=== PATIENT | female | born 1985 | race Hispanic/Latino ===

== ENCOUNTER 2017-09-15 09:03 | Emergency (ER) | payer SELFPAY ==
[2017-09-15] MEDS ORDERED: Lidocaine 1% PF 5 ML VIAL ONE (09:31)
== END 2017-09-15 09:55 | disposition home or self-care (01) ==
LOC: ERS 09:03
DX: L02.413 Cutaneous abscess of right upper limb (principal); Z76.0 Encounter for issue of repeat prescription; F41.9 Anxiety disorder, unspecified; F32.9 Major depressive disorder, single episode, unspecified; F17.210 Nicotine dependence, cigarettes, uncomplicated
CPT/HCPCS: 10061; J2001

== ENCOUNTER 2024-07-04 05:14 | Inpatient (IN) | payer SELFPAY ==
[2024-07-04] MEDS ORDERED: Acetaminophen 650 MG Suppository PR PRN (05:58)
[2024-07-04] MEDS ORDERED: Ondansetron PF 4 MG/2 ML Vial IVP PRN (05:58)
[2024-07-04] MEDS ORDERED: Ondansetron ODT 4 MG TAB PO PRN (05:58)
[2024-07-04] MEDS: Lorazepam 1 MG TAB PO SCH (06:20)
[2024-07-04 07:15] LABS: #Basophils 0.04 10x3/uL (0.0-0.2); %Basophils 0.5 % (0.0-1.0); %Lymphocytes 38.6 % (21.0-51.0); %Monocytes 7.5 % (0.0-10.0); Hematocrit 30.7 % (36.0-47.0); Hemoglobin 10.2 g/dL (12.0-16.0); Mean Corpuscular HGB CONC 33.2 g/dL (32.0-36.0); Mean Corpuscular Hemoglobin 28.7 pg (27.0-31.0); Mean Corpuscular Volume 86.2 fL (78.0-98.0); Mean Platelet Volume 9.5 fL (7.4-10.4); Platelet Count 282 10x3/uL (130-400); RBC Distribution Width 14.8 % (11.5-14.5); Red Blood Cell (RBC) Count 3.56 mill/uL (4.20-5.40)
[2024-07-04 07:16] VITALS: BMI 28.8
[2024-07-04 07:44] LABS: Anion Gap 11 mmol/L (10-20); BUN (Urea Nitrogen) 9 mg/dL (7.0-18.7); Calc. Creatinine Clearance 112 mL/min (70-130); Calcium 7.9 mg/dL (7.8-10.44); Carbon Dioxide 22 mmol/L (22-29); Chloride 114 mmol/L (98-107); Estimated GFR 110; Glucose 89 mg/dL (70-105); Potassium 3.5 mmol/L (3.5-5.1); Sodium 143 mmol/L (136-145)
[2024-07-04 07:48] LABS: Troponin I Less than 0.010 ng/mL (< 0.028)
[2024-07-04] MEDS: Aspirin Chewable 81 MG TAB PO SCH (08:51)
[2024-07-04] MEDS ORDERED: Guaifenesin DM 100-10/5 ML UDCUP PO PRN (09:22)
[2024-07-04 09:33] LABS: Troponin I Less than 0.010 ng/mL (< 0.028)
[2024-07-04] MEDS: Sodium Chloride 0.9% 1,000 ML IV SCH (10:54)
[2024-07-04] MEDS: Acetaminophen 325 MG TAB PO PRN (11:02)
[2024-07-04] MEDS: Lorazepam 2 MG/ML VIAL SLOW IVP PRN (11:58)
[2024-07-04] MEDS: Zolpidem Tartrate 5 MG TAB PO PRN (20:35)
[2024-07-04] MEDS: Gabapentin 400 MG CAP PO SCH (21:38)
[2024-07-05 04:40] LABS: #Basophils 0.03 10x3/uL (0.0-0.2); %Basophils 0.4 % (0.0-1.0); %Eosinophils 3.6 % (0.0-10.0); %Lymphocytes 37.9 % (21.0-51.0); %Neutrophils 51.8 % (42.0-75.0); Hematocrit 33.8 % (36.0-47.0); Hemoglobin 11.1 g/dL (12.0-16.0); Mean Corpuscular HGB CONC 32.8 g/dL (32.0-36.0); Mean Corpuscular Volume 85.1 fL (78.0-98.0); Mean Platelet Volume 10.1 fL (7.4-10.4); Platelet Count 287 10x3/uL (130-400); RBC Distribution Width 14.4 % (11.5-14.5); Red Blood Cell (RBC) Count 3.97 mill/uL (4.20-5.40)
[2024-07-05 04:56] LABS: Anion Gap 12 mmol/L (10-20); BUN (Urea Nitrogen) 7 mg/dL (7.0-18.7); Calc. Creatinine Clearance 112 mL/min (70-130); Calcium 8.2 mg/dL (7.8-10.44); Carbon Dioxide 20 mmol/L (22-29); Chloride 111 mmol/L (98-107); Estimated GFR 110; Glucose 111 mg/dL (70-105); Potassium 3.4 mmol/L (3.5-5.1); Sodium 140 mmol/L (136-145)
[2024-07-05] MEDS: Enoxaparin 40 MG (0.4 mL) SYRINGE SC SCH (07:59)
[2024-07-05] MEDS: Potassium Chloride 20 MEQ TAB PO SCH (11:27)
[2024-07-05] MEDS: QUEtiapine 100 MG TAB PO SCH (15:30)
[2024-07-05] MEDS: clonazePAM 1 MG TAB PO SCH ×2 (15:30→20:26)
[2024-07-05] MEDS: QUEtiapine 200 MG TAB PO SCH (20:26)
[2024-07-06] MEDS: Levothyroxine Sodium 25 MCG TAB PO SCH (06:30)
[2024-07-06] MEDS: FLUoxetine HCl 20 MG CAP PO SCH (08:26)
[2024-07-06] MEDS: traZODone HCl 50 MG TAB PO SCH (08:26)
[2024-07-06] MEDS: Potassium Bicarbonate/Cit Ac 20 MEQ TAB PO SCH (08:27)
[2024-07-06] MEDS ORDERED: QUEtiapine 100 MG TAB PO SCH ×2 (09:00)
[2024-07-06] MEDS: Calcium Carbonate 500 MG ChewTAB PO PRN (09:29)
[2024-07-06] MEDS: traMADol HCl 50 MG TAB PO PRN (12:58)
[2024-07-06] MEDS: Cyclobenzaprine 10 MG TAB PO SCH (16:08)
[2024-07-06] MEDS: Sodium Chloride 0.9% 1,000 ML IV SCH (17:59)
[2024-07-06] MEDS: QUEtiapine 200 MG TAB PO SCH (21:41)
[2024-07-06] MEDS: Senokot S 8.6-50 MG TAB PO PRN (21:42)
[2024-07-06] MEDS: Zolpidem Tartrate 5 MG TAB PO PRN (21:43)
[2024-07-06] MEDS: clonazePAM 1 MG TAB PO PRN (21:44)
[2024-07-07] MEDS: Metoprolol Tartrate 25 MG TAB PO SCH (03:35)
[2024-07-07 05:02] LABS: Cardiac Risk 3.5 (Less than 4.5)
[2024-07-07] MEDS ORDERED: Regadenoson 0.4 MG/5 ML SYRINGE ONE (10:37)
[2024-07-07] MEDS: Cosyntropin 250 MCG VIAL SLOW IVP SCH (15:30)
[2024-07-07] MEDS: Dexamethasone 10 MG/ML VIAL SLOW IVP SCH (15:30)
[2024-07-07] MEDS: Sodium Chloride 0.9% 1,000 ML IV SCH ×2 (15:35→20:15)
[2024-07-07] MEDS ORDERED: clonazePAM 1 MG TAB PO PRN (16:00)
[2024-07-07] MEDS: traZODone HCl 50 MG TAB PO SCH (20:15)
[2024-07-07] MEDS: QUEtiapine 200 MG TAB PO SCH (20:15)
[2024-07-08] MEDS: Hydrocortisone Sod Succ/PF 100 mg/2 ml Vial IVP SCH (05:44)
[2024-07-08 05:51] LABS: Anion Gap 12 mmol/L (10-20); BUN (Urea Nitrogen) 11 mg/dL (7.0-18.7); Calc. Creatinine Clearance 102 mL/min (70-130); Calcium 8.6 mg/dL (7.8-10.44); Carbon Dioxide 21 mmol/L (22-29); Chloride 110 mmol/L (98-107); Estimated GFR 98; Glucose 157 mg/dL (70-105); Potassium 4.3 mmol/L (3.5-5.1); Sodium 139 mmol/L (136-145)
[2024-07-08] MEDS: QUEtiapine 100 MG TAB PO SCH (07:56)
[2024-07-08] MEDS: clonazePAM 1 MG TAB PO SCH (07:56)
[2024-07-08 11:59] LABS: Reference Lab Name LABCORP
[2024-07-08] MEDS: Gabapentin 300 MG CAP PO SCH (15:20)
[2024-07-08] MEDS: Fludrocortisone Acetate 0.1 MG TAB PO SCH (17:09)
[2024-07-08] MEDS: SUMAtriptan Succinate 50 MG TAB PO PRN (17:09)
[2024-07-08] MEDS: Sodium Chloride 0.9% 1,000 ML IV SCH (17:10)
[2024-07-09] MEDS: Hydrocortisone Sod Succ/PF 100 mg/2 ml Vial IVP SCH (05:35)
[2024-07-09] MEDS: Fludrocortisone Acetate 0.1 MG TAB PO SCH (08:49)
[2024-07-09 13:24] VITALS: BP 122/85; TEMP 98
== END 2024-07-09 18:06 | disposition home or self-care (01) | DRG 644 ==
LOC: 2NO 05:35 → OBSVTOIN 07-06 16:31
PROVIDERS: ADMIT Internal Medicine; ATTEND Hospitalist
DX: E27.40 Unspecified adrenocortical insufficiency (principal); D68.51 Activated protein C resistance; F41.9 Anxiety disorder, unspecified; F32.A Depression, unspecified; M94.0 Chondrocostal junction syndrome [Tietze]; D64.9 Anemia, unspecified; G47.00 Insomnia, unspecified; I95.1 Orthostatic hypotension; Z90.49 Acquired absence of other specified parts of digestive tract; Z98.51 Tubal ligation status; Z88.5 Allergy status to narcotic agent; Z87.891 Personal history of nicotine dependence
CPT/HCPCS: 36415; 70551; 78452; 80048; 80061; 80400; 82024; 82533; 84443; 85025; 93017; 93306; 94760; A9502; J0834; J1100; J1650; J1720; J2060; J2785; J7030